=== PATIENT | female | born 1995 | race Caucasian/White ===

== ENCOUNTER 2025-04-07 15:06 | Emergency (ER) | payer OTHER ==
[~2025-04-07] VITALS: Ht 157.5 cm; Wt 111.8 kg
[2025-04-07] MEDS: NS (Normal Saline) 0.9% 1,000 ML IV ONE (16:38)
[2025-04-07 16:58] LABS: BASO # 0.0 10^3/uL (0.0-0.2); BASO % 0.5 % (0.0-1.0); EOS # 0.1 10^3/uL (0.0-0.5); EOS % 0.7 % (0.0-3.0); LYMPH # 2.8 10^3/uL (1.5-5.0); LYMPH % 32.1 % (24.0-44.0); MONO # 0.7 10^3/uL (0.0-0.8); MONO % 7.9 % (2.0-8.0); NEUTROPHILS # 5.1 10^3/uL (1.5-8.5); NEUTROPHILS % 58.3 % (36.0-66.0); PLATELET COUNT, AUTOMATED 112 10^3/uL (150-450)
[2025-04-07 17:18] LABS: ALT/SGPT 18 U/L (7.0-40); AST/SGOT 21 U/L (<34); CALCIUM LEVEL 9.1 MG/DL (8.5-10.1); CARBON DIOXIDE LEVEL 26 MMOL/L (20-31); CHLORIDE LEVEL 103 MMOL/L (98-107); CREATININE FOR GFR 0.72 MG/DL (0.55-1.30); GLOMERULAR FILTRATION RATE > 90.0 (>60); MAGNESIUM LEVEL 2.1 MG/DL (1.8-2.4); POTASSIUM SERUM 4.0 MMOL/L (3.5-5.1); SODIUM LEVEL 141 MMOL/L (136-145)
[2025-04-07 17:29] LABS: HCG, SERUM QUALITATIVE NEGATIVE (NEGATIVE)
[2025-04-07 17:42] LABS: APPEARANCE, URINE HAZY (CLEAR); BACTERIA, URINE AUTO 1+ (NEGATIVE); BILIRUBIN, URINE AUTO NEGATIVE (NEGATIVE); BLOOD, URINE BLOOD NEGATIVE (NEGATIVE); GLUCOSE, URINE (UA) AUTO NEGATIVE (NEGATIVE); KETONE, URINE AUTO NEGATIVE (NEGATIVE); LEUKOCYTE ESTERASE, URINE AUTO NEGATIVE (NEGATIVE); MUCUS, URINE SMALL (NEGATIVE); NITRITE, URINE AUTO NEGATIVE (NEGATIVE); PROTEIN, URINE AUTO NEGATIVE (NEGATIVE); RBC, URINE AUTO 3 /HPF (0-3); SPECIFIC GRAVITY URINE AUTO 1.012 (1.002-1.035); SQUAMOUS EPITHELIAL CELL UR AU 6 /HPF (0-6); UROBILINOGEN, URINE AUTO 0.2 mg/dL (0.0-2.0); WBC, URINE AUTO 2 /HPF (0-3)
[2025-04-07] MEDS ORDERED: ISOVUE-370 76% 100 ML VIAL As Ordered ONE (18:20)
[2025-04-07] MEDS: ACETAMINOPHEN 325 MG TAB PO ONE (18:42)
[2025-04-07] MEDS ORDERED: HOLTER MONITOR XX (21:07)
[2025-04-07] MEDS ORDERED: SYNT50TA PO (21:07)
[2025-04-07 21:17] VITALS: BP 123/74; TEMP 96.8; O2SAT 97
== END 2025-04-07 21:26 | disposition home or self-care (01) ==
LOC: M ED 15:06
DX: R00.2 Palpitations (principal); E05.80 Other thyrotoxicosis without thyrotoxic crisis or storm; I51.7 Cardiomegaly; Z91.048 Other nonmedicinal substance allergy status; Z79.899 Other long term (current) drug therapy
CPT/HCPCS: 71275; 80048; 80076; 81001; 83735; 84443; 84703; 85025; 93005; 93041; 96360; 96361; 99285; Q9967

== ENCOUNTER → 2025-04-10 | Outpatient (CLI) | payer OTHER ==
[~2025-04-10] MED LIST: HOLTER MONITOR XX; SYNT50TA PO
== END ==
LOC: M EKG 11:47
PROVIDERS: ATTEND Physician Assistant Medical
DX: R00.2 Palpitations (principal)